=== PATIENT | male | born 1995 | race Caucasian/White ===

== ENCOUNTER → 2017-04-13 00:40 | Emergency (ER) | payer SELFPAY ==
[2017-04-13 02:31] LABS: Hematocrit 44 % (42-52); Hemoglobin 15.4 g/dl (14.0-18.0); Mean Corpuscular HGB Conc 35 g/dl (31-36); Mean Corpuscular Hemoglobin 32 pg (27-31); Mean Corpuscular Volume 91 fL (80-94); Mean Platelet Volume 8 um3 (7.4-10.4); Red Blood Count 4.84 10^6/ul (4.0-5.4); Red Cell Distribution Width 13 % (10.5-15); White Blood Count 8.7 10^3/ul (3.5-10.8)
[2017-04-13 02:45] LABS: Albumin 4.5 g/dL (3.2-5.2); BUN/Creatinine Ratio 11.6 (8-20); Calcium 8.8 mg/dL (8.6-10.3); EGFR African American 128.7 (>60); EGFR Non-African American 100.1 (>60); Globulin 2.4 g/dL (2-4); Potassium 3.6 mmol/L (3.5-5.0); Total Bilirubin 0.4 mg/dL (0.2-1.0); Total Protein 6.9 g/dL (6.4-8.9)
--- NOTE | 2017-04-13 07:01 | ED ---
Tez Carrasco Nikita, scribed for Asher Calderonuel on 04/13/17 at 0136 . Substance Abuse/Use - HPI Summary HPI Summary: LEVEL 5 CAVEAT DUE TO ETOH INTOXICATION This patient is a 22 year old M presenting to ED with a chief complaint of ETOH intoxication since earlier today. - History Of Current Complaint Chief Complaint: EDSubstanceAbuse Stated Complaint: ETOH Time Seen by Provider: 04/13/17 01:12 Hx Obtained From: Patient Hx From Patient Unobtainable Due To: Other - alcohol intoxication Onset/Duration of Drug/ETOH Abuse: Hours Timing Of Abuse: Binge Use Character: Lethargic - Allergies/Home Medications Allergies/Adverse Reactions: Allergies Allergy/AdvReac Type Severity Reaction Status Date / Time Unable to Obtain Allergy Verified 04/13/17 01:08 PMH/Surg Hx/FS Hx/Imm Hx Endocrine/Hematology History: Denies: Hx Diabetes Cardiovascular History: Denies: Hx Coronary Artery Disease, Hx Hypertension Infectious Disease History: No Infectious Disease History: Denies: Traveled Outside the [place] in Last 30 Days - Family History Known Family History: Negative: Cardiac Disease - Social History Alcohol Use: Daily Substance Use Type: Reports: None Smoking Status (MU): Never Smoked Tobacco Review of Systems - ROS Summary Review of Systems Summary: LEVEL 5 CAVEAT DUE TO ETOH INTOXICATION. Positive: Other - ETOH intoxication All Other Systems Reviewed And Are Negative: No Physical Exam Triage Information Reviewed: Yes Vital Signs On Initial Exam: Initial Vitals Temp Pulse Resp BP Pulse Ox 97.4 F 75 18 138/66 96 04/13/17 01:08 04/13/17 01:08 04/13/17 01:08 04/13/17 01:08 04/13/17 01:08 Vital Signs Reviewed: Yes Completion Of Physical Exam Limited Due To: Level 5 Appearance: Positive: Well-Appearing, No Pain Distress Skin: Positive: Warm, Skin Color Reflects Adequate Perfusion, Dry Head/Face: Positive: Normal Head/Face Inspection Eyes: Positive: EOMI, GRAEME ENT: Positive: Normal ENT inspection Neck: Positive: Supple, Nontender Respiratory/Lung Sounds: Positive: Clear to Auscultation, Breath Sounds Present Cardiovascular: Positive: RRR, Pulses are Symmetrical in both Upper and Lower Extremities Abdomen Description: Positive: Nontender, Soft Bowel Sounds: Positive: Present Musculoskeletal: Positive: Normal, Strength/ROM Intact Neurological: Positive: Sensory/Motor Intact, Other - lethargic - [place] Coma Scale Coma Scale Total: 7 Diagnostics - Vital Signs Vital Signs Temp Pulse Resp BP Pulse Ox 04/13/17 01:08 97.4 F 75 18 138/66 96 - Laboratory Result Diagrams: 04/13/17 02:21 04/13/17 02:21 Lab Statement: Any lab studies that have been ordered have been reviewed, and results considered in the medical decision making process. Course/Dx - Course Assessment/Plan: LEVEL 5 CAVEAT. This patient is a 22 year old M presenting to ED with a chief complaint of ETOH intoxication since earlier today. Bloodwork/ UA obtained. Pt will be discharged. - Diagnoses Differential Diagnosis/HQI/PQRI: Positive: Other - alcohol intoxication Provider Diagnoses: Alcohol intoxication Discharge - Discharge Plan Condition: Stable Disposition: HOME Patient Education Materials: Alcohol Intoxication (ED) The documentation as recorded by the Tez mead Nikita accurately reflects the service I personally performed and the decisions made by Kvng angel Emmanuel.
[2017-04-13 13:00] LABS: Urine Bacteria Absent (Absent); Urine Bilirubin Negative (Negative); Urine Glucose Negative (Negative); Urine Nitrite Negative (Negative)
[2017-04-13 13:15] LABS: Benzodiazepine Urine Screen None Detected (None Detect)
[2017-04-14 04:43] VITALS: BP 96/78
== END | disposition home or self-care (01) ==
LOC: ED 00:40
DX: F10.129 Alcohol abuse with intoxication, unspecified (principal)
CPT/HCPCS: 36415; 80053; 80307; 80320; 81003; 81015; 85025; 99282; G0480